=== PATIENT | male | born 1965 | race American Indian/Alaskan Native ===

== ENCOUNTER 2017-08-07 22:36 | Inpatient (IN) | payer MEDICARE ==
--- NOTE | 2017-08-08 00:16 | XRay Report ---
FINAL REPORT EXAM: XR CHEST ROUTINE 2V HISTORY: Shortness of breath COMPARISON: None available. FINDINGS:: Frontal and lateral views of the chest obtained. Cardiac silhouette is within normal limits. No focal consolidation or effusion. No pneumothorax. Visualized bony thorax is grossly intact. IMPRESSION:: No acute findings.
[2017-08-08 00:28] LABS: BUN/Creatinine Ratio 18; Blood Urea Nitrogen 16 mg/dL (9-20); Calcium 8.9 mg/dL (8.4-10.2)
[2017-08-08 03:22] LABS: Basophils # (Auto) 0.1 K/mm3 (0.0-0.1); Basophils % (Auto) 1.1 % (0.0-1.8); Eosinophils # (Auto) 0.6 K/mm3 (0.0-0.4); Eosinophils % (Auto) 9.1 % (0.0-4.3); Hematocrit 41.7 % (35.5-45.6); Hemoglobin 13.8 gm/dl (11.8-15.2); Lymphocytes # (Auto) 2.6 K/mm3 (1.2-5.4); Lymphocytes % (Auto) 38.1 % (13.4-35.0); Mean Corpuscular HGB Conc 33 % (32-34); Mean Corpuscular Hemoglobin 30 pg (28-32); Mean Corpuscular Volume 91 fl (84-94); Monocytes # (Auto) 0.6 K/mm3 (0.0-0.8); Monocytes % (Auto) 9.2 % (0.0-7.3); Platelet Count 287 K/mm3 (140-440); Red Blood Count 4.58 M/mm3 (3.65-5.03); Red Cell Distribution Width 14.8 % (13.2-15.2)
[2017-08-08] MEDS ORDERED: D50W (25GM) Syringe IV ONE (08:16)
--- NOTE | 2017-08-08 20:54 | Emergency Department Report ---
HPI - General Chief Complaint: Dyspnea/Respdistress Time Seen by Provider: 08/08/17 20:41 - HPI HPI: Room 9 The patient is a 51-year-old male presenting with a chief complaint of chest pain. The patient was sent from her [facility] where his patient for evaluation of chest pain. Patient states he developed intermittent left-sided chest pain last night associated with shortness of breath, nausea/vomiting and diaphoresis. The patient states the pain has been coming and going and currently is not present. 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 - Surgical History Past Surgical History?: No - Family History Family history: no significant - Social History Smoking Status: Current Some Day Smoker Substance Use Type: None (denies illicit drug use) - Medications Home Medications: Home Medications Medication Instructions Recorded Confirmed Last Taken Type No Known Home Medications [No 07/11/13 07/11/13 Unknown History Reported Home Medications] ED Review of Systems ROS: Stated complaint: NAVNEET,CP Other details as noted in HPI Eyes: denies: eye pain ENT: denies: throat pain Respiratory: shortness of breath Cardiovascular: chest pain Gastrointestinal: nausea, vomiting. denies: abdominal pain Genitourinary: denies: dysuria Musculoskeletal: denies: back pain Neurological: denies: headache Physical Exam - Physical Exam Vital Signs: Vital Signs 08/07/17 08/08/17 23:15 20:03 Temperature 98 F 97.9 F Pulse Rate 75 99 H Respiratory 20 18 Rate Blood Pressure 135/77 151/78 O2 Sat by Pulse 100 95 Oximetry Physical Exam: GENERAL: The patient is well-developed well-nourished male lying on stretcher not appearing to be in acute distress. [] HEENT: Atraumatic. Extraocular motions are intact. Patient has moist mucous membranes. NECK: Supple. Trachea midline CHEST/LUNGS: Clear to auscultation. There is no respiratory distress noted. HEART/CARDIOVASCULAR: Regular. There is no tachycardia. There is no gallop rub or murmur. ABDOMEN: Abdomen is soft, nontender. Patient has normal bowel sounds. There is no abdominal distention. SKIN: There is no rash. There is no edema. There is no diaphoresis. NEURO: The patient is awake and alert. The patient is cooperative. The patient has normal speech MUSCULOSKELETAL: There is no evidence of acute injury. ED Course Vital Signs 08/07/17 08/08/17 23:15 20:03 Temperature 98 F 97.9 F Pulse Rate 75 99 H Respiratory 20 18 Rate Blood Pressure 135/77 151/78 O2 Sat by Pulse 100 95 Oximetry ED Medical Decision Making - Lab Data Result diagrams: 08/08/17 02:57 08/07/17 23:51 Laboratory Tests 08/07/17 08/08/17 23:51 02:57 WBC 6.8 RBC 4.58 Hgb 13.8 Hct 41.7 MCV 91 MCH 30 MCHC 33 RDW 14.8 Plt Count 287 Lymph % (Auto) 38.1 H [place] % (Auto) 9.2 H Eos % (Auto) 9.1 H Baso % (Auto) 1.1 Lymph # 2.6 [place] # 0.6 Eos # 0.6 H Baso # 0.1 Seg Neutrophils % 42.5 Seg Neutrophils # 2.9 Sodium 138 Potassium 4.4 Chloride 99.2 Carbon Dioxide 28 Anion Gap 15 BUN 16 Creatinine 0.9 Estimated GFR > 60 BUN/Creatinine Ratio 18 Glucose 100 Calcium 8.9 Troponin T < 0.010 - EKG Data -: EKG Interpreted by Me EKG shows normal: sinus rhythm Rate: normal (74 bpm) - EKG Data When compared to previous EKG there are: no significant change Interpretation: unchanged when compared t (05/17/2013), other (no ischemic changes seen) - Radiology Data Radiology results: report reviewed (chest x-ray), image reviewed (chest x-ray) interpreted by me: Chest x-ray-no focal infiltrate, no pneumothorax FINAL REPORT EXAM: XR CHEST ROUTINE 2V HISTORY: Shortness of breath COMPARISON: None available. FINDINGS:: Frontal and lateral views of the chest obtained. Cardiac silhouette is within normal limits. No focal consolidation or effusion. No pneumothorax. Visualized bony thorax is grossly intact. IMPRESSION:: No acute findings. Transcribed By: LMA Dictated By: SAMARIA SANTIZO MD Electronically Authenticated By: SAMARIA SANTIZO MD Signed Date/Time: 08/07/172012 DD/ 12 TD/TT: 08/07/172012 - Differential Diagnosis ACS, GERD, pericarditis Critical care attestation.: If time is entered above; I have spent that time in minutes in the direct care of this critically ill patient, excluding procedure time. ED Disposition Clinical Impression: Chest pain Disposition: DC-09 OP ADMIT IP TO THIS HOSP Is pt being admited?: Yes Does the pt Need Aspirin: Yes Condition: Fair Instructions: Chest Pain (ED) Referrals: SARAVANAN AGUIAR MD [Primary Care Provider] - 3-5 Days Time of Disposition: 21:11 (hospitalist paged)
[2017-08-08] MEDS ORDERED: ASPIRIN PO ONE (20:56)
[2017-08-08] MEDS ORDERED: DULCOLAX PR PRN (22:41)
[2017-08-08] MEDS ORDERED: MILK OF MAGNESIA PO PRN (22:41)
[2017-08-08] MEDS ORDERED: ZOFRAN IV PRN (22:41)
--- NOTE | 2017-08-08 22:41 | History and Physical Report ---
History of Present Illness Date of examination: 08/08/17 History of present illness: 51-year-old male with a history of hypertension, bipolar, schizophrenia, seizure , comes to the emergency room with complaint of chest pain that started today. Pain is in the left chest which he describes a dull pain, unable to say how long it lasts for, intensity 4/ 10, no radiation and he cannot identify exacerbating or relieving factors. He denies nausea vomiting, shortness of breath, diaphoresis or palpitation Review Of Systems: Constitutional: no weight loss Ears, eyes, nose, mouth and throat: no nasal congestion, no nasal discharge, no sinus pressure, blurry vision, diplopia Neck: No neck pain or rigidity. Cardiovascular: No palpitations Respiratory: No shortness of breath, cough Gastrointestinal: No abdominal pain, hematochezia Genitourinary : no dysuria, frequency , hematuria Musculoskeletal: no muscle ache Integumentary: no rash, no pruritis Neurological: no parathesias, focal weakness Endocrine: no cold or heat intolerance, no polyuria or polydipsia Hematologic/Lymphatic: no easy bruising, no easy bleeding, no gland swelling Allergic/Immunologic: no urticaria, no angioedema. PAST MEDICAL HISTORY:hypertension, bipolar, schizophrenia, seizure PAST SURGICAL HISTORY: Skin graft FAMILY HISTORY:hypertension SOCIAL HISTORY: Smokes 1 cigarette a day, no alcohol or drugs Medications and Allergies Allergies Allergy/AdvReac Type Severity Reaction Status Date / Time acetaminophen [From Tylenol] Allergy Hives Verified 05/17/13 11:19 Home Medications Medication Instructions Recorded Confirmed Last Taken Type No Known Home Medications [No 07/11/13 08/09/17 Unknown History Reported Home Medications] Exam - Physical Exam Narrative exam: Gen. appearance: Patient lying in bed in no acute distress HEENT: Normocephalic/atraumatic, pupils equal round reactive to light, extra occular movement intact, no scleral icterus, no JVD or thyromegaly or nodule, neck is supple, mucous membrane moist, no erythema or exudate Heart: S1-S2, regular rate and rhythm Lungs: Clear to auscultation bilateral breathing comfortable Abdomen: Positive bowel sounds, nontender, nondistended, no organomegaly Extremities: No edema, cyanosis, clubbing Neuro:: Oriented 3 , cranial nerves II-12 intact, speech, motor intact Skin: No rash, nodules, warm dry - Constitutional Vitals: Temp Pulse Resp BP Pulse Ox 98 F 100 H 18 110/78 100 08/08/17 22:35 08/08/17 22:35 08/08/17 22:35 08/08/17 22:35 08/08/17 22:35 Results - Labs CBC & Chem 7: 08/09/17 05:11 08/12/17 06:58 Labs: Abnormal lab results 08/08/17 Range/Units 02:57 Lymph % (Auto) 38.1 H (13.4-35.0) % [place] % (Auto) 9.2 H (0.0-7.3) % Eos % (Auto) 9.1 H (0.0-4.3) % Eos # 0.6 H (0.0-0.4) K/mm3 - Imaging and Cardiology EKG: image reviewed Chest x-ray: image reviewed Assessment and Plan Assessment Atypical chest pain Hypertension Bipolar Schizophrenia Seizure Plan Admit to medicine Check cardiac enzymes, stress test Continue appropriate outpatient medications DVT prophylaxis
[2017-08-08 23:37] LABS: Creatine Kinase MB 5.9 ng/mL (0.0-4.0)
[2017-08-09 05:52] LABS: Basophils % (Auto) 0.6 % (0.0-1.8); Eosinophils # (Auto) 0.4 K/mm3 (0.0-0.4); Eosinophils % (Auto) 6.2 % (0.0-4.3); Hematocrit 38.9 % (35.5-45.6); Hemoglobin 13.1 gm/dl (11.8-15.2); Lymphocytes # (Auto) 1.8 K/mm3 (1.2-5.4); Lymphocytes % (Auto) 28.5 % (13.4-35.0); Mean Corpuscular HGB Conc 34 % (32-34); Mean Corpuscular Hemoglobin 31 pg (28-32); Mean Corpuscular Volume 91 fl (84-94); Monocytes # (Auto) 0.9 K/mm3 (0.0-0.8); Monocytes % (Auto) 14.4 % (0.0-7.3); Platelet Count 251 K/mm3 (140-440); Red Blood Count 4.29 M/mm3 (3.65-5.03); Red Cell Distribution Width 15.1 % (13.2-15.2)
[2017-08-09 06:08] LABS: Creatine Kinase MB 4.4 ng/mL (0.0-4.0)
[2017-08-09 06:09] LABS: BUN/Creatinine Ratio 21; Blood Urea Nitrogen 19 mg/dL (9-20); Calcium 8.9 mg/dL (8.4-10.2); Hemolysis Index 162
--- NOTE | 2017-08-09 08:39 | Progress Note ---
<ADELINE NEWBERRY - Last Filed: 08/09/17 12:47> Assessment and Plan Assessment and plan: Patient is a 51 years old male with a history of hypertension, bipolar, schizophrenia, seizure, comes to the emergency room with complaint of chest pain that started today. Chest Pain EKG normal sinus rate [address] elevation or T-wave inversion. Negative cardiac enzyme X3 Start on aspirin Nitroglycerin when necessary Morphine ordered for pain Stress test pending. Patient confused was not able to have stress test; we will get tomorrow if patient metal status improved. Rhabdomyolysis mild Started on IV fluid Closely monitor CK Metabolic encephalopathy Most likely due to schizophrenia Treat underline cause Hypertension Resume home antihypertensive medication IV hydralazine for SBP>160 Closely monitor blood pressure Schizophrenia Mental health consult DVT prophylaxis Lovenox History Interval history: Patient confused and oriented to self, denies chest pain or shortness of breath at present time. Labs and nursing notes reviewed. Hospitalist Physical - Physical exam Narrative exam: Patient was confused on alert oriented to self. - Constitutional Vitals: Temp Pulse Resp BP Pulse Ox 98.4 F 90 23 102/64 92 08/09/17 04:47 08/09/17 04:47 08/09/17 04:47 08/09/17 04:47 08/09/17 04:47 General appearance: Present: no acute distress, other (confused) - EENT Eyes: Present: PERRL ENT: hearing intact - Neck Neck: Present: supple - Respiratory Respiratory effort: normal Respiratory: bilateral: CTA - Cardiovascular Rhythm: regular Heart Sounds: Present: S1 & S2 - Abdominal General gastrointestinal: soft, non-tender - Integumentary Integumentary: Present: clear (dry skin), warm, dry - Psychiatric Psychiatric: other (empired judgment) - Neurologic Neurologic: moves all extremities - Allied Health Allied health notes reviewed: nursing Results - Labs CBC & Chem 7: 08/09/17 05:11 08/09/17 05:11 Labs: Laboratory Last Values WBC 6.2 K/mm3 (4.5-11.0) 08/09/17 05:11 RBC 4.29 M/mm3 (3.65-5.03) 08/09/17 05:11 Hgb 13.1 gm/dl (11.8-15.2) 08/09/17 05:11 Hct 38.9 % (35.5-45.6) 08/09/17 05:11 MCV 91 fl (84-94) 08/09/17 05:11 MCH 31 pg (28-32) 08/09/17 05:11 MCHC 34 % (32-34) 08/09/17 05:11 RDW 15.1 % (13.2-15.2) 08/09/17 05:11 Plt Count 251 K/mm3 (140-440) 08/09/17 05:11 Lymph % (Auto) 28.5 % (13.4-35.0) 08/09/17 05:11 [place] % (Auto) 14.4 % (0.0-7.3) H 08/09/17 05:11 Eos % (Auto) 6.2 % (0.0-4.3) H 08/09/17 05:11 Baso % (Auto) 0.6 % (0.0-1.8) 08/09/17 05:11 Lymph # 1.8 K/mm3 (1.2-5.4) 08/09/17 05:11 [place] # 0.9 K/mm3 (0.0-0.8) H 08/09/17 05:11 Eos # 0.4 K/mm3 (0.0-0.4) 08/09/17 05:11 Baso # 0.0 K/mm3 (0.0-0.1) 08/09/17 05:11 Seg Neutrophils % 50.3 % (40.0-70.0) 08/09/17 05:11 Seg Neutrophils # 3.1 K/mm3 (1.8-7.7) 08/09/17 05:11 Sodium 144 mmol/L (137-145) 08/09/17 05:11 Potassium 4.7 mmol/L (3.6-5.0) 08/09/17 05:11 Chloride 103.3 mmol/L (98-107) 08/09/17 05:11 Carbon Dioxide 26 mmol/L (22-30) 08/09/17 05:11 Anion Gap 19 mmol/L 08/09/17 05:11 BUN 19 mg/dL (9-20) 08/09/17 05:11 Creatinine 0.9 mg/dL (0.8-1.5) 08/09/17 05:11 Estimated GFR > 60 ml/min 08/09/17 05:11 BUN/Creatinine Ratio 21 % 08/09/17 05:11 Glucose 92 mg/dL (75-100) 08/09/17 05:11 Calcium 8.9 mg/dL (8.4-10.2) 08/09/17 05:11 Total Creatine Kinase 293 units/L (55-170) H 08/09/17 05:11 CK-MB (CK-2) 4.4 ng/mL (0.0-4.0) H 08/09/17 05:11 CK-MB (CK-2) Rel Index 1.5 (0-4) 08/09/17 05:11 Troponin T < 0.010 ng/mL (0.00-0.029) 08/09/17 05:11 <JEWEL LOVE - Last Filed: 08/09/17 14:27> Assessment and Plan Assessment and plan: I saw and evaluated the patient. I agree with the findings and the plan of care as documented in the Nurse Practitioner's Hospitalist Physical - Constitutional Vitals: Temp Pulse Resp BP Pulse Ox 98.4 F 75 23 119/67 97 08/09/17 04:47 08/09/17 12:15 08/09/17 04:47 08/09/17 12:15 08/09/17 12:15 Results - Labs CBC & Chem 7: 08/09/17 05:11 08/09/17 05:11 Labs: Laboratory Last Values WBC 6.2 K/mm3 (4.5-11.0) 08/09/17 05:11 RBC 4.29 M/mm3 (3.65-5.03) 08/09/17 05:11 Hgb 13.1 gm/dl (11.8-15.2) 08/09/17 05:11 Hct 38.9 % (35.5-45.6) 08/09/17 05:11 MCV 91 fl (84-94) 08/09/17 05:11 MCH 31 pg (28-32) 08/09/17 05:11 MCHC 34 % (32-34) 08/09/17 05:11 RDW 15.1 % (13.2-15.2) 08/09/17 05:11 Plt Count 251 K/mm3 (140-440) 08/09/17 05:11 Lymph % (Auto) 28.5 % (13.4-35.0) 08/09/17 05:11 [place] % (Auto) 14.4 % (0.0-7.3) H 08/09/17 05:11 Eos % (Auto) 6.2 % (0.0-4.3) H 08/09/17 05:11 Baso % (Auto) 0.6 % (0.0-1.8) 08/09/17 05:11 Lymph # 1.8 K/mm3 (1.2-5.4) 08/09/17 05:11 [place] # 0.9 K/mm3 (0.0-0.8) H 08/09/17 05:11 Eos # 0.4 K/mm3 (0.0-0.4) 08/09/17 05:11 Baso # 0.0 K/mm3 (0.0-0.1) 08/09/17 05:11 Seg Neutrophils % 50.3 % (40.0-70.0) 08/09/17 05:11 Seg Neutrophils # 3.1 K/mm3 (1.8-7.7) 08/09/17 05:11 Sodium 144 mmol/L (137-145) 08/09/17 05:11 Potassium 4.7 mmol/L (3.6-5.0) 08/09/17 05:11 Chloride 103.3 mmol/L (98-107) 08/09/17 05:11 Carbon Dioxide 26 mmol/L (22-30) 08/09/17 05:11 Anion Gap 19 mmol/L 08/09/17 05:11 BUN 19 mg/dL (9-20) 08/09/17 05:11 Creatinine 0.9 mg/dL (0.8-1.5) 08/09/17 05:11 Estimated GFR > 60 ml/min 08/09/17 05:11 BUN/Creatinine Ratio 21 % 08/09/17 05:11 Glucose 92 mg/dL (75-100) 08/09/17 05:11 Calcium 8.9 mg/dL (8.4-10.2) 08/09/17 05:11 Total Creatine Kinase 293 units/L (55-170) H 08/09/17 05:11 CK-MB (CK-2) 4.4 ng/mL (0.0-4.0) H 08/09/17 05:11 CK-MB (CK-2) Rel Index 1.5 (0-4) 08/09/17 05:11 Troponin T < 0.010 ng/mL (0.00-0.029) 08/09/17 05:11
[2017-08-09] MEDS: LOVENOX SUB-Q SCH (09:54)
[2017-08-09] MEDS: NACL 0.9% 1000 ML 1,000 ML IV SCH (18:56)
[2017-08-10] MEDS: NACL 0.9% 1000 ML 1,000 ML IV SCH (07:08)
--- NOTE | 2017-08-10 08:56 | Progress Note ---
<ADELINE NEWBERRY - Last Filed: 08/10/17 11:16> Assessment and Plan Assessment and plan: Patient is a 51 years old male with a history of hypertension, bipolar, schizophrenia, seizure, comes to the emergency room with complaint of chest pain that started today. Chest Pain EKG normal sinus rate [address] elevation or T-wave inversion. Negative cardiac enzyme X3 Start on aspirin Nitroglycerin when necessary Morphine ordered for pain Stress test pending. Patient still confused was not able to have stress test; Cardiology start him on metoprolol. Cardiology following Rhabdomyolysis mild Continue on IV fluid CK improving Closely monitor CK Metabolic encephalopathy Most likely due to schizophrenia Treat underline cause Hypertension Resume home antihypertensive medication IV hydralazine for SBP>160 Closely monitor blood pressure Schizophrenia Mental health consult DVT prophylaxis Lovenox History Interval history: Patient confused and oriented to self,he answer yes to everything. He denies chest pain or shortness of breath at present time. Labs and nursing notes reviewed. Hospitalist Physical - Physical exam Narrative exam: disoriented to time,place and situation. - Constitutional Vitals: Temp Pulse Resp BP Pulse Ox 97.7 F 67 22 133/73 93 08/10/17 05:01 08/10/17 05:01 08/10/17 05:01 08/10/17 05:01 08/10/17 05:01 General appearance: Present: no acute distress, other (confused) - EENT Eyes: Present: PERRL - Neck Neck: Present: supple - Respiratory Respiratory effort: normal Respiratory: bilateral: CTA - Cardiovascular Rhythm: regular Heart Sounds: Present: S1 & S2 - Abdominal General gastrointestinal: soft, non-tender - Integumentary Integumentary: Present: clear, warm, dry - Psychiatric Psychiatric: other (impaired judgment) - Neurologic Neurologic: moves all extremities - Allied Health Allied health notes reviewed: nursing Results - Labs CBC & Chem 7: 08/09/17 05:11 08/09/17 05:11 Labs: Laboratory Last Values WBC 6.2 K/mm3 (4.5-11.0) 08/09/17 05:11 RBC 4.29 M/mm3 (3.65-5.03) 08/09/17 05:11 Hgb 13.1 gm/dl (11.8-15.2) 08/09/17 05:11 Hct 38.9 % (35.5-45.6) 08/09/17 05:11 MCV 91 fl (84-94) 08/09/17 05:11 MCH 31 pg (28-32) 08/09/17 05:11 MCHC 34 % (32-34) 08/09/17 05:11 RDW 15.1 % (13.2-15.2) 08/09/17 05:11 Plt Count 251 K/mm3 (140-440) 08/09/17 05:11 Lymph % (Auto) 28.5 % (13.4-35.0) 08/09/17 05:11 [place] % (Auto) 14.4 % (0.0-7.3) H 08/09/17 05:11 Eos % (Auto) 6.2 % (0.0-4.3) H 08/09/17 05:11 Baso % (Auto) 0.6 % (0.0-1.8) 08/09/17 05:11 Lymph # 1.8 K/mm3 (1.2-5.4) 08/09/17 05:11 [place] # 0.9 K/mm3 (0.0-0.8) H 08/09/17 05:11 Eos # 0.4 K/mm3 (0.0-0.4) 08/09/17 05:11 Baso # 0.0 K/mm3 (0.0-0.1) 08/09/17 05:11 Seg Neutrophils % 50.3 % (40.0-70.0) 08/09/17 05:11 Seg Neutrophils # 3.1 K/mm3 (1.8-7.7) 08/09/17 05:11 Sodium 144 mmol/L (137-145) 08/09/17 05:11 Potassium 4.7 mmol/L (3.6-5.0) 08/09/17 05:11 Chloride 103.3 mmol/L (98-107) 08/09/17 05:11 Carbon Dioxide 26 mmol/L (22-30) 08/09/17 05:11 Anion Gap 19 mmol/L 08/09/17 05:11 BUN 19 mg/dL (9-20) 08/09/17 05:11 Creatinine 0.9 mg/dL (0.8-1.5) 08/09/17 05:11 Estimated GFR > 60 ml/min 08/09/17 05:11 BUN/Creatinine Ratio 21 % 08/09/17 05:11 Glucose 92 mg/dL (75-100) 08/09/17 05:11 Calcium 8.9 mg/dL (8.4-10.2) 08/09/17 05:11 Total Creatine Kinase 293 units/L (55-170) H 08/09/17 05:11 CK-MB (CK-2) 4.4 ng/mL (0.0-4.0) H 08/09/17 05:11 CK-MB (CK-2) Rel Index 1.5 (0-4) 08/09/17 05:11 Troponin T < 0.010 ng/mL (0.00-0.029) 08/09/17 05:11 <JEWEL LOVE - Last Filed: 08/10/17 15:19> Assessment and Plan Assessment and plan: I saw and evaluated the patient. I agree with the findings and the plan of care as documented in the Nurse Practitioner's Patient unable to get stress because no consent could be obtained, so Cardiology consulted Hospitalist Physical - Constitutional Vitals: Temp Pulse Resp BP Pulse Ox 97.7 F 65 16 122/74 96 08/10/17 07:47 08/10/17 07:47 08/10/17 07:47 08/10/17 07:47 08/10/17 07:47 Results - Labs CBC & Chem 7: 08/09/17 05:11 08/09/17 05:11 Labs: Laboratory Last Values WBC 6.2 K/mm3 (4.5-11.0) 08/09/17 05:11 RBC 4.29 M/mm3 (3.65-5.03) 08/09/17 05:11 Hgb 13.1 gm/dl (11.8-15.2) 08/09/17 05:11 Hct 38.9 % (35.5-45.6) 08/09/17 05:11 MCV 91 fl (84-94) 08/09/17 05:11 MCH 31 pg (28-32) 08/09/17 05:11 MCHC 34 % (32-34) 08/09/17 05:11 RDW 15.1 % (13.2-15.2) 08/09/17 05:11 Plt Count 251 K/mm3 (140-440) 08/09/17 05:11 Lymph % (Auto) 28.5 % (13.4-35.0) 08/09/17 05:11 [place] % (Auto) 14.4 % (0.0-7.3) H 08/09/17 05:11 Eos % (Auto) 6.2 % (0.0-4.3) H 08/09/17 05:11 Baso % (Auto) 0.6 % (0.0-1.8) 08/09/17 05:11 Lymph # 1.8 K/mm3 (1.2-5.4) 08/09/17 05:11 [place] # 0.9 K/mm3 (0.0-0.8) H 08/09/17 05:11 Eos # 0.4 K/mm3 (0.0-0.4) 08/09/17 05:11 Baso # 0.0 K/mm3 (0.0-0.1) 08/09/17 05:11 Seg Neutrophils % 50.3 % (40.0-70.0) 08/09/17 05:11 Seg Neutrophils # 3.1 K/mm3 (1.8-7.7) 08/09/17 05:11 Sodium 144 mmol/L (137-145) 08/09/17 05:11 Potassium 4.7 mmol/L (3.6-5.0) 08/09/17 05:11 Chloride 103.3 mmol/L (98-107) 08/09/17 05:11 Carbon Dioxide 26 mmol/L (22-30) 08/09/17 05:11 Anion Gap 19 mmol/L 08/09/17 05:11 BUN 19 mg/dL (9-20) 08/09/17 05:11 Creatinine 0.9 mg/dL (0.8-1.5) 08/09/17 05:11 Estimated GFR > 60 ml/min 08/09/17 05:11 BUN/Creatinine Ratio 21 % 08/09/17 05:11 Glucose 92 mg/dL (75-100) 08/09/17 05:11 Calcium 8.9 mg/dL (8.4-10.2) 08/09/17 05:11 Total Creatine Kinase 293 units/L (55-170) H 08/09/17 05:11 CK-MB (CK-2) 4.4 ng/mL (0.0-4.0) H 08/09/17 05:11 CK-MB (CK-2) Rel Index 1.5 (0-4) 08/09/17 05:11 Troponin T < 0.010 ng/mL (0.00-0.029) 08/09/17 05:11
[2017-08-10] MEDS: LOVENOX SUB-Q SCH (09:37)
--- NOTE | 2017-08-10 10:55 | Consultation ---
History of Present Illness Consult date: 08/10/17 Requesting physician: JEWEL LOVE Consult reason: chest pain History of present illness: The patient is a 51 year old male with a history of bipolar disorder and schizophrenia who presented on 08/07/17 with complaints of chest pain. He states that on the day of presentation he developed severe crushing chest pain associated with shortness of breath, nausea and diaphoresis. Chest pain resolved on its own. Currently he is chest pain free. Troponin negative x 3. No previous ischemic evaluation. 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) Social history: other (unable to obtain ) Family history: other (unable to obtain) Medications and Allergies Allergies Allergy/AdvReac Type Severity Reaction Status Date / Time acetaminophen [From Tylenol] Allergy Hives Verified 05/17/13 11:19 Home Medications Medication Instructions Recorded Confirmed Last Taken Type No Known Home Medications [No 07/11/13 08/09/17 Unknown History Reported Home Medications] Active Meds: Active Medications Bisacodyl (Dulcolax) 10 mg WA QDAY PRN PRN Reason: Constipation unrelieved by MOM Enoxaparin Sodium (Lovenox) 40 mg SUB-Q QDAY [facility] Last Admin: 08/10/17 09:37 Dose: 40 mg Sodium Chloride (Nacl 0.9% 1000 Ml) 1,000 mls @ 75 mls/hr IV DIRECT [facility] Last Admin: 08/10/17 07:08 Dose: 75 mls/hr Magnesium Hydroxide (Milk Of Magnesia) 30 ml PO Q4H PRN PRN Reason: Constipation Ondansetron HCl (Zofran) 4 mg IV Q8H PRN PRN Reason: N/V unrelieved by Reglan Review of Systems Constitutional: no fever, no chills Ears, nose, mouth and throat: no nasal congestion, no nasal discharge, no sinus pressure Cardiovascular: chest pain, shortness of breath Respiratory: shortness of breath, no cough Gastrointestinal: nausea, no abdominal pain, no diarrhea Genitourinary Male: no dysuria, no hematuria Musculoskeletal: no neck stiffness, no neck pain, no myalgias Integumentary: no rash, no pruritis Neurological: no parathesias, no numbness, no tingling Endocrine: no cold intolerance, no heat intolerance Hematologic/Lymphatic: no easy bruising, no easy bleeding Allergic/Immunologic: no urticaria, no wheezing Physical Examination Vital Signs Temp Pulse Resp BP Pulse Ox 98 F 75 20 135/77 100 08/07/17 23:15 08/07/17 23:15 08/07/17 23:15 08/07/17 23:15 08/07/17 23:15 General appearance: no acute distress HEENT: Positive: Normocephaly, Mucus Membranes Moist Neck: Positive: neck supple, trachea midline Cardiac: Positive: Reg Rate and Rhythm, S1/S2 Lungs: Positive: clear to auscultation Neuro: Positive: Grossly Intact Abdomen: Positive: Soft, Active Bowel Sounds. Negative: Tender Skin: Positive: Clear. Negative: Rash Extremities: Present: normal. Absent: edema Results 08/09/17 05:11 08/09/17 05:11 - Imaging and Cardiology EKG: image reviewed EKG interpretations - Telemetry EKG Rhythm: Sinus Rhythm - EKG Sinus rhythms and dysrhythmias: sinus rhythm Assessment and Plan Assessment: Chest pain-->troponin negative x 3, no acute EKG changes Schizophrenia Bipolar disorder Plan: Plan for Lexiscan thallium stress test in am. Consent obtained from patient's mother. The patient has been seen in conjunction with Dr. Kovacs who agrees with the assessment and plan of care.
--- NOTE | 2017-08-10 11:10 | Consultation ---
History of Present Illness - Reason for Consult Consult date: 08/10/17 Reason for consult: Mental Health Evaluation Requesting physician: JEWEL LOVE - Chief Complaint Chief complaint: "Patient has dysarthria type speech" - History of Present Psychiatric Illness The patient is a 51-year-old male presenting with a chief complaint of chest pain. Today patient is calm during the assessment. The patient mumbles during the interview. He was able to squeeze my hand when asked. Per his medical chart , he was inpatient at [facility] since 07/08/2017 prior to his admission to [facility]. Patient is a poor historian. No gestures of SI/HI's. Medications and Allergies Allergies Allergy/AdvReac Type Severity Reaction Status Date / Time acetaminophen [From Tylenol] Allergy Hives Verified 05/17/13 11:19 Home Medications Medication Instructions Recorded Confirmed Last Taken Type No Known Home Medications [No 07/11/13 08/09/17 Unknown History Reported Home Medications] Active Meds: Active Medications Bisacodyl (Dulcolax) 10 mg MT QDAY PRN PRN Reason: Constipation unrelieved by MOM Enoxaparin Sodium (Lovenox) 40 mg SUB-Q QDAY JULIÁN Last Admin: 08/10/17 09:37 Dose: 40 mg Sodium Chloride (Nacl 0.9% 1000 Ml) 1,000 mls @ 75 mls/hr IV DIRECT JULIÁN Last Admin: 08/10/17 07:08 Dose: 75 mls/hr Magnesium Hydroxide (Milk Of Magnesia) 30 ml PO Q4H PRN PRN Reason: Constipation Ondansetron HCl (Zofran) 4 mg IV Q8H PRN PRN Reason: N/V unrelieved by Reglan Past psychiatric history - Past Medical History Past Medical History: diabetes, hypertension, seizures Past Surgical History: Other (Unable to obtain) - past Psychiatric treatment and history psychiatric treatment history: Impatient at [facility] prior to his admission to [facility]. Unable to obtain a fam psy hx. - Social History Social history: other (Unable to obtain) Mental Status Exam - Vital signs Last Vital Signs Temp 97.7 F 08/10/17 07:47 Pulse 65 08/10/17 07:47 Resp 16 08/10/17 07:47 BP 122/74 08/10/17 07:47 Pulse Ox 96 08/10/17 07:47 - Exam Narrative exam: Unable to complete the MSE because of the patient current medical condition. Results Result Diagrams: 08/09/17 05:11 08/09/17 05:11 All other labs normal. Assessment and Plan Assessment and plan: Impression: Per the record, the patient has a hx of schizophrenia and bipolar do. Today patient is calm during the assessment. Recommendation/Plan: Gather collateral information to determine proper treatment and dispo. Restaurant Floor Manager is involved trying to contact the next of kin.
--- NOTE | 2017-08-11 08:29 | Progress Note ---
Assessment and Plan Assessment: Chest pain-->troponin negative x 3, no acute EKG changes NSVT Schizophrenia Bipolar disorder Plan: 8 beat run of NSVT noted on the monitor overnight. Check stat BMP and magnesium level. Initiate low dose coreg. Lexiscan stress test showed no significant ischemia, EF 40%. Will continue to observe on the monitor overnight. The patient has been seen in conjunction with Dr. Kovacs who agrees with the assessment and plan of care. Subjective Date of service: 08/11/17 Principal diagnosis: chest pain Interval history: The patient is seen and examined in the stress lab. No further chest pain. Sinus rhythm on the monitor. 8 beat run of NSVT noted on the monitor overnight. Objective Last Vital Signs Temp 98.5 F 08/11/17 10:03 Pulse 52 L 08/11/17 10:03 Resp 20 08/11/17 10:03 BP 114/55 08/11/17 10:03 Pulse Ox 96 08/11/17 10:03 - Physical Examination General: No Apparent Distress HEENT: Positive: Normocephaly, Mucus Membranes Moist Neck: Positive: neck supple, trachea midline Cardiac: Positive: Reg Rate and Rhythm, S1/S2 Lungs: Positive: clear to auscultation Neuro: Positive: Grossly Intact Abdomen: Positive: Soft, Active Bowel Sounds. Negative: Tender Skin: Positive: Clear. Negative: Rash Extremities: Present: normal. Absent: edema - Imaging and Cardiology EKG: image reviewed - Telemetry EKG Rhythm: Sinus Rhythm - EKG Sinus rhythms and dysrhythmias: sinus rhythm
--- NOTE | 2017-08-11 09:13 | Progress Note ---
<ADELINE NEWBERRY - Last Filed: 08/11/17 11:19> Assessment and Plan Assessment and plan: Patient is a 51 years old male with a history of hypertension, bipolar, schizophrenia, seizure, comes to the emergency room with complaint of chest pain that started today. Placement Patient will need appropriate placement;case management is aware of it. Chest Pain EKG normal sinus rate [address] elevation or T-wave inversion. Negative cardiac enzyme X3 Start on aspirin Nitroglycerin when necessary Morphine ordered for pain Stress test done awaiting on findings Cardiology following Rhabdomyolysis mild Continue on IV fluid CK improving Closely monitor CK Metabolic encephalopathy Most likely due to schizophrenia Treat underline cause Hypertension Resume home antihypertensive medication IV hydralazine for SBP>160 Closely monitor blood pressure Schizophrenia Mental health consult DVT prophylaxis Lovenox History Interval history: Patient still confused, he mumbles. He denies having any discomfort. Labs and nursing notes reviewed. Hospitalist Physical - Physical exam Narrative exam: Patient confused oriented to self. - Constitutional Vitals: Temp Pulse Resp BP Pulse Ox 97.5 F L 82 20 117/68 96 08/11/17 04:56 08/11/17 04:56 08/11/17 04:56 08/11/17 04:56 08/11/17 04:56 General appearance: Present: no acute distress - EENT Eyes: Present: PERRL ENT: hearing intact - Neck Neck: Present: supple - Respiratory Respiratory effort: normal Respiratory: bilateral: CTA - Cardiovascular Rhythm: regular Heart Sounds: Present: S1 & S2 - Abdominal General gastrointestinal: soft, non-tender - Integumentary Integumentary: Present: clear, warm, dry - Psychiatric Psychiatric: appropriate mood/affect - Neurologic Neurologic: moves all extremities - Allied Health Allied health notes reviewed: nursing Results - Labs CBC & Chem 7: 08/09/17 05:11 08/09/17 05:11 Labs: Laboratory Last Values WBC 6.2 K/mm3 (4.5-11.0) 08/09/17 05:11 RBC 4.29 M/mm3 (3.65-5.03) 08/09/17 05:11 Hgb 13.1 gm/dl (11.8-15.2) 08/09/17 05:11 Hct 38.9 % (35.5-45.6) 08/09/17 05:11 MCV 91 fl (84-94) 08/09/17 05:11 MCH 31 pg (28-32) 08/09/17 05:11 MCHC 34 % (32-34) 08/09/17 05:11 RDW 15.1 % (13.2-15.2) 08/09/17 05:11 Plt Count 251 K/mm3 (140-440) 08/09/17 05:11 Lymph % (Auto) 28.5 % (13.4-35.0) 08/09/17 05:11 [place] % (Auto) 14.4 % (0.0-7.3) H 08/09/17 05:11 Eos % (Auto) 6.2 % (0.0-4.3) H 08/09/17 05:11 Baso % (Auto) 0.6 % (0.0-1.8) 08/09/17 05:11 Lymph # 1.8 K/mm3 (1.2-5.4) 08/09/17 05:11 [place] # 0.9 K/mm3 (0.0-0.8) H 08/09/17 05:11 Eos # 0.4 K/mm3 (0.0-0.4) 08/09/17 05:11 Baso # 0.0 K/mm3 (0.0-0.1) 08/09/17 05:11 Seg Neutrophils % 50.3 % (40.0-70.0) 08/09/17 05:11 Seg Neutrophils # 3.1 K/mm3 (1.8-7.7) 08/09/17 05:11 Sodium 144 mmol/L (137-145) 08/09/17 05:11 Potassium 4.7 mmol/L (3.6-5.0) 08/09/17 05:11 Chloride 103.3 mmol/L (98-107) 08/09/17 05:11 Carbon Dioxide 26 mmol/L (22-30) 08/09/17 05:11 Anion Gap 19 mmol/L 08/09/17 05:11 BUN 19 mg/dL (9-20) 08/09/17 05:11 Creatinine 0.9 mg/dL (0.8-1.5) 08/09/17 05:11 Estimated GFR > 60 ml/min 08/09/17 05:11 BUN/Creatinine Ratio 21 % 08/09/17 05:11 Glucose 92 mg/dL (75-100) 08/09/17 05:11 Calcium 8.9 mg/dL (8.4-10.2) 08/09/17 05:11 Total Creatine Kinase 293 units/L (55-170) H 08/09/17 05:11 CK-MB (CK-2) 4.4 ng/mL (0.0-4.0) H 08/09/17 05:11 CK-MB (CK-2) Rel Index 1.5 (0-4) 08/09/17 05:11 Troponin T < 0.010 ng/mL (0.00-0.029) 08/09/17 05:11 <JEWEL LOVE - Last Filed: 08/11/17 15:19> Assessment and Plan Assessment and plan: I saw and evaluated the patient. I agree with the findings and the plan of care as documented in the Nurse Practitioner's~note, with the following corrections and additions. 8 beat run of NSVT, d/w Cardiology, medical management, stress test unrevealing for ACS Awaiting placement Hospitalist Physical - Constitutional Vitals: Temp Pulse Resp BP Pulse Ox 98.5 F 71 20 114/60 96 08/11/17 10:03 08/11/17 13:26 08/11/17 10:03 08/11/17 13:26 08/11/17 10:03 Results - Labs CBC & Chem 7: 08/09/17 05:11 08/11/17 12:47 Labs: Laboratory Last Values WBC 6.2 K/mm3 (4.5-11.0) 08/09/17 05:11 RBC 4.29 M/mm3 (3.65-5.03) 08/09/17 05:11 Hgb 13.1 gm/dl (11.8-15.2) 08/09/17 05:11 Hct 38.9 % (35.5-45.6) 08/09/17 05:11 MCV 91 fl (84-94) 08/09/17 05:11 MCH 31 pg (28-32) 08/09/17 05:11 MCHC 34 % (32-34) 08/09/17 05:11 RDW 15.1 % (13.2-15.2) 08/09/17 05:11 Plt Count 251 K/mm3 (140-440) 08/09/17 05:11 Lymph % (Auto) 28.5 % (13.4-35.0) 08/09/17 05:11 [place] % (Auto) 14.4 % (0.0-7.3) H 08/09/17 05:11 Eos % (Auto) 6.2 % (0.0-4.3) H 08/09/17 05:11 Baso % (Auto) 0.6 % (0.0-1.8) 08/09/17 05:11 Lymph # 1.8 K/mm3 (1.2-5.4) 08/09/17 05:11 [place] # 0.9 K/mm3 (0.0-0.8) H 08/09/17 05:11 Eos # 0.4 K/mm3 (0.0-0.4) 08/09/17 05:11 Baso # 0.0 K/mm3 (0.0-0.1) 08/09/17 05:11 Seg Neutrophils % 50.3 % (40.0-70.0) 08/09/17 05:11 Seg Neutrophils # 3.1 K/mm3 (1.8-7.7) 08/09/17 05:11 Sodium 143 mmol/L (137-145) 08/11/17 12:47 Potassium 4.0 mmol/L (3.6-5.0) 08/11/17 12:47 Chloride 101.4 mmol/L (98-107) 08/11/17 12:47 Carbon Dioxide 28 mmol/L (22-30) 08/11/17 12:47 Anion Gap 18 mmol/L 08/11/17 12:47 BUN 17 mg/dL (9-20) 08/11/17 12:47 Creatinine 0.8 mg/dL (0.8-1.5) 08/11/17 12:47 Estimated GFR > 60 ml/min 08/11/17 12:47 BUN/Creatinine Ratio 21 % 08/11/17 12:47 Glucose 108 mg/dL (75-100) H 08/11/17 12:47 Calcium 8.9 mg/dL (8.4-10.2) 08/11/17 12:47 Magnesium 1.90 mg/dL (1.7-2.3) 08/11/17 12:47 Total Creatine Kinase 293 units/L (55-170) H 08/09/17 05:11 CK-MB (CK-2) 4.4 ng/mL (0.0-4.0) H 08/09/17 05:11 CK-MB (CK-2) Rel Index 1.5 (0-4) 08/09/17 05:11 Troponin T < 0.010 ng/mL (0.00-0.029) 08/09/17 05:11
[2017-08-11] MEDS ORDERED: LEXISCAN IV ONE ×2 (09:22)
--- NOTE | 2017-08-11 09:47 | Progress Note ---
Subjective - Reason for Consult Consult date: 08/11/17 Reason for consult: Psychiatry Follow-up - Chief Complaint Chief complaint: "Hello" The patient is a 51-year-old male presenting with a chief complaint of chest pain. Today patient is calm during the assessment and more oriented than yesterday. He was able to follow his RN's command when asked. Per the notes, no behavioral disturbance overnight. No gestures of SI/HI's. Per collateral information from his mother Carmella Keating [phone], she could not explain how her son ended at [facility] and [place]. When she was asked about his mental health dx and possible medication, she stated, "I don't know." She did state that her son can return home once discharged. Mental Status Exam - Vital signs Last Vital Signs Temp 97.5 F L 08/11/17 04:56 Pulse 82 08/11/17 04:56 Resp 20 08/11/17 04:56 BP 117/68 08/11/17 04:56 Pulse Ox 96 08/11/17 04:56 - Exam Narrative exam: MSE: Appearance: calm, cooperative Behavior: good eye contact Speech: regular rate and tone Mood: "okay" Affect: blunted Thought Process: unable to assess Thought Content: no gestures SI/HI's and AVH's Motor Activity: lying in the bed Cognition: alert Insight: limited Judgment: limited Assessment and Plan Impression: Per the record, the patient has a hx of schizophrenia and bipolar do. Intellectual Disability Unspecified. Today patient is calm during the assessment. Recommendation/Plan: Continue to gain collateral information to determine proper treatment. Shop Laborer involvement, patient may need placement when discharged.
[2017-08-11] MEDS: LOVENOX SUB-Q SCH (13:25)
[2017-08-11] MEDS: COREG PO SCH ×2 (13:26→21:43)
[2017-08-11 14:30] LABS: BUN/Creatinine Ratio 21; Blood Urea Nitrogen 17 mg/dL (9-20); Calcium 8.9 mg/dL (8.4-10.2); Hemolysis Index 7
[2017-08-11] MEDS: NACL 0.9% 1000 ML 1,000 ML IV SCH (17:34)
--- NOTE | 2017-08-12 04:23 | Treadmill Report ---
NUCLEAR CARDIAC IMAGING INDICATION FOR PROCEDURE: Chest pain. Informed consent was obtained. DESCRIPTION OF PROCEDURE: Resting nuclear cardiac images were performed 45-60 minutes following the intravenous administration of 10 mCi of technetium-99m Myoview. Vasodilator stress was achieved with 0.4 mg of intravenous Lexiscan. Stress imaging was performed 30-45 minutes following the intravenous administration of 28 mCi of technetium-99m Myoview. Images were obtained in a 180-degree arc from 45 degrees LUAN to 45 degrees LPO. After data acquisition, the images were processed and reoriented into the vertical long, horizontal long, and horizontal short axis slices. A polar color map of the horizontal short axis slices was generated and reviewed. The rotating planar images reviewed in cinematic format on the computer console. Gated SPECT imaging demonstrates a post-stress left ventricular ejection fraction of 40%. The left ventricle is diffusely hypokinetic with no significant regional wall motion abnormality. There is no significant cavity change between stress and rest. Myocardial perfusion imaging demonstrates a medium-sized, moderately intense persistent inferoapical perfusion abnormality. In the absence of a significant wall motion abnormality, this defect is likely artifactual in origin. Nuclear cardiac imaging demonstrates mild post-stress left ventricular systolic dysfunction with no significant evidence for myocardial ischemia or necrosis. [facility]# [id number] VALE/FELIX RG
[2017-08-12 07:55] LABS: BUN/Creatinine Ratio 17; Blood Urea Nitrogen 15 mg/dL (9-20); Calcium 8.7 mg/dL (8.4-10.2); Hemolysis Index 11
--- NOTE | 2017-08-12 09:02 | Progress Note ---
Assessment and Plan non sustained vt lv ef 40% on gated spect rec increase coreg to 6.25 mg po bid obtain echo Subjective Date of service: 08/12/17 Principal diagnosis: chest pain Interval history: no cp or sob. no palp being followed by psych had another brief run of non sustained vt. not symptomatic Objective Vital Signs Temp Pulse Pulse Pulse Resp BP BP 08/12/17 04:31 98.2 F 59 L 18 118/67 08/12/17 00:42 77 20 08/12/17 00:36 77 08/12/17 00:19 98.3 F 68 18 124/73 08/11/17 21:43 77 128/68 08/11/17 19:38 98.5 F 77 18 128/68 08/11/17 16:15 98.5 F 72 18 115/71 08/11/17 13:26 71 114/60 08/11/17 10:03 98.5 F 52 L 20 114/55 08/11/17 10:00 78 20 08/11/17 09:38 83 113/69 08/11/17 09:37 84 132/80 08/11/17 09:36 95 H 124/73 08/11/17 09:35 97 H 117/72 08/11/17 09:34 98 H 116/68 08/11/17 09:33 79 121/74 08/11/17 09:30 62 116/69 Pulse Ox 08/12/17 04:31 97 08/12/17 00:42 98 08/12/17 00:36 08/12/17 00:19 96 08/11/17 21:43 08/11/17 19:38 98 08/11/17 16:15 96 08/11/17 13:26 08/11/17 10:03 96 08/11/17 10:00 98 08/11/17 09:38 08/11/17 09:37 08/11/17 09:36 08/11/17 09:35 08/11/17 09:34 08/11/17 09:33 08/11/17 09:30 - Physical Examination General: No Apparent Distress HEENT: Positive: Normocephaly, Mucus Membranes Moist Neck: Positive: neck supple, trachea midline Cardiac: Positive: Reg Rate and Rhythm. Negative: S3 Lungs: Positive: clear to auscultation Neuro: Positive: Grossly Intact Abdomen: Positive: Soft, Active Bowel Sounds. Negative: Tender Skin: Positive: Clear. Negative: Rash Extremities: Present: normal. Absent: edema - Labs and Meds Comprehensive Metabolic Panel 08/11/17 08/12/17 Range/Units 12:47 06:58 Sodium 143 141 (137-145) mmol/L Potassium 4.0 4.2 (3.6-5.0) mmol/L Chloride 101.4 102.4 (98-107) mmol/L Carbon Dioxide 28 27 (22-30) mmol/L BUN 17 15 (9-20) mg/dL Creatinine 0.8 0.9 (0.8-1.5) mg/dL Glucose 108 H 93 (75-100) mg/dL Calcium 8.9 8.7 (8.4-10.2) mg/dL - Imaging and Cardiology EKG: image reviewed - EKG Sinus rhythms and dysrhythmias: sinus rhythm
[2017-08-12] MEDS ORDERED: COREG PO SCH (10:00)
[2017-08-12] MEDS: NACL 0.9% 1000 ML 1,000 ML IV SCH ×2 (10:03→22:34)
[2017-08-12] MEDS: COREG PO SCH ×2 (10:03→22:33)
[2017-08-12] MEDS: LOVENOX SUB-Q SCH (10:03)
--- NOTE | 2017-08-12 13:37 | Progress Note ---
Assessment and Plan Assessment and plan: Patient is a 51 years old man with a history of hypertension, bipolar, schizophrenia, seizure, who presented to the emergency room with complaint of chest pains Chest Pain EKG normal sinus rate [address] elevation or T-wave inversion. Negative cardiac enzyme X3 Start on aspirin Nitroglycerin when necessary Morphine ordered for pain Stress test done awaiting on findings Cardiology following Rhabdomyolysis resolved Continue on IV fluid CK improving Closely monitor CK Metabolic encephalopathy Most likely due to schizophrenia Treat underline cause Hypertension Resume home antihypertensive medication IV hydralazine for SBP>160 Closely monitor blood pressure Schizophrenia Mental health consulted DVT prophylaxis Lovenox 08/11/17: 8 beat run of NSVT, d/w Cardiology, medical management, stress test unrevealing for ACS Awaiting placement 08/12/2017: Patient had more runs of NSVT, potassium and magnesium normal, d/w Cardiology, Dr. Kovacs, increased coreg to 6.25 po bid, ordered ECHO History Interval history: Patient was seen and examined. Follow-up on current diagnosis. Overnight uneventful. Imaging, nursing note, chart, labs and old chart reviewed. Discussed with patient. Hospitalist Physical - Physical exam Narrative exam: GEN: WDWN, NAD, AWAKE, ALERT, ORIENTATED x 1 HEENT: NCAT, EOMI, PERRL, OP Clear NECK: supple, no adenopathy, no thyromegaly, no JVD CVS/HEART: RRR, NORMAL S1S2, NO JVD, pulses present bilaterally CHEST/LUNGS: CTA B, Symmetrical chest expansion, good air entry bilaterally GI/Abdomen: soft, NTND, good bowel sounds, no guarding or rebound /Bladder: no suprapubic tenderness, no CVA or paraspinal tenderness EXT/Skin: no c/c/e, no obvious rash MSK: FROM x 4 Neuro: CN 2-12 grossly intact, no new focal deficits Psych: calm - Constitutional Vitals: Temp Pulse Resp BP Pulse Ox 98.1 F 59 L 20 129/69 97 08/12/17 12:43 08/12/17 12:43 08/12/17 12:43 08/12/17 12:43 08/12/17 12:43 General appearance: Present: no acute distress Results - Labs CBC & Chem 7: 08/09/17 05:11 08/12/17 06:58 Labs: Laboratory Last Values WBC 6.2 K/mm3 (4.5-11.0) 08/09/17 05:11 RBC 4.29 M/mm3 (3.65-5.03) 08/09/17 05:11 Hgb 13.1 gm/dl (11.8-15.2) 08/09/17 05:11 Hct 38.9 % (35.5-45.6) 08/09/17 05:11 MCV 91 fl (84-94) 08/09/17 05:11 MCH 31 pg (28-32) 08/09/17 05:11 MCHC 34 % (32-34) 08/09/17 05:11 RDW 15.1 % (13.2-15.2) 08/09/17 05:11 Plt Count 251 K/mm3 (140-440) 08/09/17 05:11 Lymph % (Auto) 28.5 % (13.4-35.0) 08/09/17 05:11 [place] % (Auto) 14.4 % (0.0-7.3) H 08/09/17 05:11 Eos % (Auto) 6.2 % (0.0-4.3) H 08/09/17 05:11 Baso % (Auto) 0.6 % (0.0-1.8) 08/09/17 05:11 Lymph # 1.8 K/mm3 (1.2-5.4) 08/09/17 05:11 [place] # 0.9 K/mm3 (0.0-0.8) H 08/09/17 05:11 Eos # 0.4 K/mm3 (0.0-0.4) 08/09/17 05:11 Baso # 0.0 K/mm3 (0.0-0.1) 08/09/17 05:11 Seg Neutrophils % 50.3 % (40.0-70.0) 08/09/17 05:11 Seg Neutrophils # 3.1 K/mm3 (1.8-7.7) 08/09/17 05:11 Sodium 141 mmol/L (137-145) 08/12/17 06:58 Potassium 4.2 mmol/L (3.6-5.0) 08/12/17 06:58 Chloride 102.4 mmol/L (98-107) 08/12/17 06:58 Carbon Dioxide 27 mmol/L (22-30) 08/12/17 06:58 Anion Gap 16 mmol/L 08/12/17 06:58 BUN 15 mg/dL (9-20) 08/12/17 06:58 Creatinine 0.9 mg/dL (0.8-1.5) 08/12/17 06:58 Estimated GFR > 60 ml/min 08/12/17 06:58 BUN/Creatinine Ratio 17 % 08/12/17 06:58 Glucose 93 mg/dL (75-100) 08/12/17 06:58 Calcium 8.7 mg/dL (8.4-10.2) 08/12/17 06:58 Magnesium 1.80 mg/dL (1.7-2.3) 08/12/17 06:58 Total Creatine Kinase 293 units/L (55-170) H 08/09/17 05:11 CK-MB (CK-2) 4.4 ng/mL (0.0-4.0) H 08/09/17 05:11 CK-MB (CK-2) Rel Index 1.5 (0-4) 08/09/17 05:11 Troponin T < 0.010 ng/mL (0.00-0.029) 08/09/17 05:11
--- NOTE | 2017-08-13 09:24 | Event Note ---
Date: 08/13/17 Patient resting comfortably and in no acute distress. Denies chest pain or shortness of breath. Nursing staff indicate that patient is refusing telemetry monitoring. Vital signs are stable. Heart rate 60 bpm and regular. On exam: The neck is supple. Carotids are 2+ without bruit. Lungs are clear. Cardiac exam reveals a regular rate and rhythm without murmur or extra sound. Abdomen is soft and nontender. Extremities without edema. Impression and plan: Chest pain with negative cardiac enzymes and no active ischemia on stress MPI. Gated SPECT demonstrating mild left ventricular systolic dysfunction with a left ventricular ejection fraction of 40%. Patient has had runs of nonsustained ventricular tachycardia. He is on Coreg. An echocardiogram has been ordered and is pending.
[2017-08-13] MEDS: COREG PO SCH ×2 (10:13→21:46)
[2017-08-13] MEDS: LOVENOX SUB-Q SCH (10:13)
--- NOTE | 2017-08-13 10:35 | Progress Note ---
Assessment and Plan Assessment and plan: Patient is a 51 years old man with a history of hypertension, bipolar, schizophrenia, seizure, who presented to the emergency room with complaint of chest pains Chest Pain EKG normal sinus rate [address] elevation or T-wave inversion. Negative cardiac enzyme X3 Start on aspirin Nitroglycerin when necessary Morphine ordered for pain Stress test done awaiting on findings Cardiology following Rhabdomyolysis resolved Continue on IV fluid CK improving Closely monitor CK Metabolic encephalopathy Most likely due to schizophrenia Treat underline cause Hypertension Resume home antihypertensive medication IV hydralazine for SBP>160 Closely monitor blood pressure Schizophrenia Mental health consulted DVT prophylaxis Lovenox 08/11/17: 8 beat run of NSVT, d/w Cardiology, medical management, stress test unrevealing for ACS Awaiting placement 08/12/2017: Patient had more runs of NSVT, potassium and magnesium normal, d/w Cardiology, Dr. Kovacs, increased coreg to 6.25 po bid, ordered ECHO 08/13/2017: Awaiting ECHO. History Interval history: Patient was seen and examined. Follow-up on current diagnosis. Overnight uneventful. Imaging, nursing note, chart, labs and old chart reviewed. Discussed with patient. Hospitalist Physical - Physical exam Narrative exam: GEN: WDWN, NAD, AWAKE, ALERT, ORIENTATED x 1 HEENT: NCAT, EOMI, PERRL, OP Clear NECK: supple, no adenopathy, no thyromegaly, no JVD CVS/HEART: RRR, NORMAL S1S2, NO JVD, pulses present bilaterally CHEST/LUNGS: CTA B, Symmetrical chest expansion, good air entry bilaterally GI/Abdomen: soft, NTND, good bowel sounds, no guarding or rebound /Bladder: no suprapubic tenderness, no CVA or paraspinal tenderness EXT/Skin: no c/c/e, no obvious rash MSK: FROM x 4 Neuro: CN 2-12 grossly intact, no new focal deficits Psych: calm - Constitutional Vitals: Temp Pulse Resp BP Pulse Ox 98.2 F 56 L 20 112/71 98 08/13/17 04:04 08/13/17 04:04 08/13/17 04:04 08/13/17 04:04 08/13/17 04:04 General appearance: Present: no acute distress Results - Labs CBC & Chem 7: 08/09/17 05:11 08/12/17 06:58 Labs: Laboratory Last Values WBC 6.2 K/mm3 (4.5-11.0) 08/09/17 05:11 RBC 4.29 M/mm3 (3.65-5.03) 08/09/17 05:11 Hgb 13.1 gm/dl (11.8-15.2) 08/09/17 05:11 Hct 38.9 % (35.5-45.6) 08/09/17 05:11 MCV 91 fl (84-94) 08/09/17 05:11 MCH 31 pg (28-32) 08/09/17 05:11 MCHC 34 % (32-34) 08/09/17 05:11 RDW 15.1 % (13.2-15.2) 08/09/17 05:11 Plt Count 251 K/mm3 (140-440) 08/09/17 05:11 Lymph % (Auto) 28.5 % (13.4-35.0) 08/09/17 05:11 [place] % (Auto) 14.4 % (0.0-7.3) H 08/09/17 05:11 Eos % (Auto) 6.2 % (0.0-4.3) H 08/09/17 05:11 Baso % (Auto) 0.6 % (0.0-1.8) 08/09/17 05:11 Lymph # 1.8 K/mm3 (1.2-5.4) 08/09/17 05:11 [place] # 0.9 K/mm3 (0.0-0.8) H 08/09/17 05:11 Eos # 0.4 K/mm3 (0.0-0.4) 08/09/17 05:11 Baso # 0.0 K/mm3 (0.0-0.1) 08/09/17 05:11 Seg Neutrophils % 50.3 % (40.0-70.0) 08/09/17 05:11 Seg Neutrophils # 3.1 K/mm3 (1.8-7.7) 08/09/17 05:11 Sodium 141 mmol/L (137-145) 08/12/17 06:58 Potassium 4.2 mmol/L (3.6-5.0) 08/12/17 06:58 Chloride 102.4 mmol/L (98-107) 08/12/17 06:58 Carbon Dioxide 27 mmol/L (22-30) 08/12/17 06:58 Anion Gap 16 mmol/L 08/12/17 06:58 BUN 15 mg/dL (9-20) 08/12/17 06:58 Creatinine 0.9 mg/dL (0.8-1.5) 08/12/17 06:58 Estimated GFR > 60 ml/min 08/12/17 06:58 BUN/Creatinine Ratio 17 % 08/12/17 06:58 Glucose 93 mg/dL (75-100) 08/12/17 06:58 Calcium 8.7 mg/dL (8.4-10.2) 08/12/17 06:58 Magnesium 1.80 mg/dL (1.7-2.3) 08/12/17 06:58 Total Creatine Kinase 293 units/L (55-170) H 08/09/17 05:11 CK-MB (CK-2) 4.4 ng/mL (0.0-4.0) H 08/09/17 05:11 CK-MB (CK-2) Rel Index 1.5 (0-4) 08/09/17 05:11 Troponin T < 0.010 ng/mL (0.00-0.029) 08/09/17 05:11
[2017-08-14] MEDS ORDERED: MORPHINE IV ONE (02:37)
[2017-08-14] MEDS: LOVENOX SUB-Q SCH (10:04)
[2017-08-14] MEDS: COREG PO SCH (10:04)
[2017-08-14 10:05] VITALS: BP 134/77
--- NOTE | 2017-08-14 11:15 | Discharge Summary ---
Providers - Providers Date of Admission: 08/08/17 22:41 Date of discharge: 08/14/17 Attending physician: JEWEL LOVE 08/09/17 12:39 Consult to Mental Health [CONS] Routine Reason For Exam: history of psychiatric problem and he is confused Place consult to:: Mental Health Notified:: [facility] CHEN Phone number called:: [phone]. [phone] Was contact made?: Yes [facility] yes[facility]:: 13:26 08/10/17 08:53 Consult to Physician [CONS] Routine Consulting Provider: MONTSERRAT OWUSU Reason For Exam: chest pain Place consult to:: Dr. Ruelas Notified:: [facility] Was contact made?: Yes If yes, spoke with:: Rosa Maria Baker Time called:: 10:37 08/10/17 16:41 Occupational Therapy Evaluate and Treat [CONS] Routine Comment: Reason For Exam: ADL Physical Therapy Evaluation and Treat [CONS] Routine Comment: Reason For Exam: coordination and ambulation 08/11/17 11:30 Consult to Case Management [CONS] Routine Services Needed at Discharge: Other Notified:: case management Comment:: Placement Primary care physician: SARAVANAN AGUIAR Hospitalization Condition: Stable Hospital course: Patient is a 51 years old man with a history of hypertension, bipolar, schizophrenia, seizure, who presented to the emergency room with complaint of chest pains Chest Pain EKG normal sinus rate [address] elevation or T-wave inversion. Negative cardiac enzyme X3 Start on aspirin Nitroglycerin when necessary Morphine ordered for pain Stress test done awaiting on findings Cardiology following Rhabdomyolysis resolved Continue on IV fluid CK improving Closely monitor CK Metabolic encephalopathy Most likely due to schizophrenia Treat underline cause Hypertension Resume home antihypertensive medication IV hydralazine for SBP>160 Closely monitor blood pressure Schizophrenia Mental health consulted DVT prophylaxis Lovenox 08/11/17: 8 beat run of NSVT, d/w Cardiology, medical management, stress test unrevealing for ACS Awaiting placement 08/12/2017: Patient had more runs of NSVT, potassium and magnesium normal, d/w Cardiology, Dr. Owusu, increased coreg to 6.25 po bid, ordered ECHO 08/13/2017: Awaiting ECHO. 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 Disposition: [id number]/TX-06 HOME UNDER [facility] Time spent for discharge: 35 min Core Measure Documentation - Palliative Care Palliative Care/ Comfort Measures: Not Applicable - Core Measures Any of the following diagnoses?: none - VTE Discharge Requirements Deep Vein Thrombosis/Pulmonary Embolism Present on Admission: No Has pt received <5 days of overlap therapy or INR<2.0: No Anticoagulant overlap therapy prescribed at discharge: No Contraindication No Overlap Therapy order at DC: Not Indicated Exam - Physical Exam Narrative exam: GEN: WDWN, NAD, AWAKE, ALERT, ORIENTATED x 1 HEENT: NCAT, EOMI, PERRL, OP Clear NECK: supple, no adenopathy, no thyromegaly, no JVD CVS/HEART: RRR, NORMAL S1S2, NO JVD, pulses present bilaterally CHEST/LUNGS: CTA B, Symmetrical chest expansion, good air entry bilaterally GI/Abdomen: soft, NTND, good bowel sounds, no guarding or rebound /Bladder: no suprapubic tenderness, no CVA or paraspinal tenderness EXT/Skin: no c/c/e, no obvious rash MSK: FROM x 4 Neuro: CN 2-12 grossly intact, no new focal deficits Psych: calm - Constitutional Vitals: Temp Pulse Resp BP Pulse Ox 98.7 F 68 20 134/77 97 08/14/17 03:45 08/14/17 10:04 08/14/17 03:45 08/14/17 10:04 08/14/17 07:52 Plan Activity: up only with assistance, fall precautions, other (no strenous activity until cleared by cardiology) Diet: low salt Follow up with: SARAVANAN AGUIAR MD [Primary Care Provider] - 3-5 Days MONTSERRAT OWUSU MD [Staff Physician] - 7 Days Prescriptions: Aspirin [Aspirin BABY CHEW TAB] 81 mg PO QDAY #30 tab.chew Carvedilol [Coreg] 6.25 mg PO BID #60 tablet Pantoprazole [Protonix TAB] 20 mg PO QDAY #30 tab
--- NOTE | 2017-08-14 14:29 | Progress Note ---
Assessment and Plan Assessment: Chest pain with negative cardiac enzymes and no active ischemia on stress MPI Mild left ventricular systolic dysfunction with a left ventricular ejection fraction of 40% NSVT Psych d/o Plan: Echo showed EF 40-45%. Currently stable cardiac status. Cont present cardiac regimen. Pt may discharge home from cardiology standpoint. Recommend follow up in our office with Rosa Maria Baker NP, within 1-2 weeks of hospital discharge ([phone] ). The patient has been seen in conjunction with Dr. Gr who agrees with the assessment and plan of care. Subjective Date of service: 08/14/17 Principal diagnosis: chest pain Interval history: pt resting comfortably in bed, no current complaints. states he is ready to discharge home. In SR/SB on tele with no additional NSVT overnight. Objective Last Vital Signs Temp 98.7 F 08/14/17 03:45 Pulse 68 08/14/17 10:04 Resp 20 08/14/17 10:00 BP 134/77 08/14/17 10:04 Pulse Ox 96 08/14/17 10:00 - Physical Examination General: No Apparent Distress HEENT: Positive: Normocephaly, Mucus Membranes Moist Neck: Positive: neck supple, trachea midline Cardiac: Positive: Reg Rate and Rhythm, S1/S2 Lungs: Positive: clear to auscultation Neuro: Positive: Grossly Intact Abdomen: Positive: Soft, Active Bowel Sounds. Negative: Tender Skin: Positive: Clear. Negative: Rash Extremities: Present: normal. Absent: edema - Imaging and Cardiology EKG: image reviewed - EKG Sinus rhythms and dysrhythmias: sinus rhythm
--- NOTE | 2017-08-18 10:20 | Query- Chest Pain ---
Manpreet Hong Mark Date: 08/18/17 Pathology Tech/CDS:____Theresa / Navin Phone#:____[phone] Exercise your independent professional judgment when responding to query. Questions asked do not imply a particular answer is desired or expected. We greatly appreciate your clarification on this issue. Clinical Documentation States: 51 year old male was admitted on 08/08/17 The discharge summary (Dr. Flores) states " Chest Pain EKG normal sinus rate [address] elevation or T-wave inversion. Negative cardiac enzyme X3 Stress test done awaiting on findings " The cardiology progress note (Dr. Gr) states " Assessment: Chest pain with negative cardiac enzymes and no active ischemia on stress MPI Mild left ventricular systolic dysfunction with a left ventricular ejection fraction of 40% NSVT " Please document the etiology of Chest Pain: [ ] Myocardial Infarction [ ] Pneumonia [ ] Mediastinitis [ ] Costochondritis [ ] Pulmonary Embolism [ ] Coronary Artery Disease [x ] GERD [ ] Other: [ ] Comment/Explanation: Present on Admission: [x ] Yes (Y) [ ] Clinically undeterminable (W) [ ] No(N) Please document response in your Progress Notes and/or Discharge Summary and indicate if the condition was present on admission. IFRAH
== END 2017-08-14 17:17 | disposition home health service (06) | DRG 391 ==
LOC: ED 22:36 → 4A 08-08 22:41
PROVIDERS: ADMIT Internal Medicine; ATTEND Internal Medicine
DX: K21.9 Gastro-esophageal reflux disease without esophagitis (principal); G93.41 Metabolic encephalopathy; M62.82 Rhabdomyolysis; I47.2 Ventricular tachycardia; I10 Essential (primary) hypertension; F17.210 Nicotine dependence, cigarettes, uncomplicated; F31.9 Bipolar disorder, unspecified; F20.9 Schizophrenia, unspecified; Z82.49 Family history of ischemic heart disease and other diseases of the circulatory system; Z88.8 Allergy status to other drugs, medicaments and biological substances
CPT/HCPCS: 36415; 71046; 78452; 80048; 82550; 82553; 83735; 84484; 85025; 93005; 93010; 93017; 93306; 99406; A9502; G8987-GO; G8988-GO; G8989-GO; J1650; J2270; J2785; J7030